=== PATIENT | male | born 1980 | race Caucasian/White ===

== ENCOUNTER 2020-01-27 16:33 | Emergency (ER) | payer OTHER, SELFPAY ==
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
== END 2020-01-27 17:15 | disposition home or self-care (01) ==
LOC: EEVIPCON 16:33 → ERS 16:33
DX: S06.0X1A Concussion with loss of consciousness of 30 minutes or less, initial encounter (principal); F17.210 Nicotine dependence, cigarettes, uncomplicated; W22.8XXA Striking against or struck by other objects, initial encounter
CPT/HCPCS: 70450

== ENCOUNTER 2021-01-19 09:17 | Outpatient (CLI) | payer SELFPAY ==
[2021-01-19 19:55] LABS: SARS-CoV-2 PCR by NAA Not Detected (NotDetected)
== END 2021-01-19 09:18 | disposition home or self-care (01) ==
LOC: LABBT 09:17
PROVIDERS: ATTEND Orthopaedic Surgery
DX: Z01.812 Encounter for preprocedural laboratory examination (principal); S62.303A Unspecified fracture of third metacarpal bone, left hand, initial encounter for closed fracture; S62.307A Unspecified fracture of fifth metacarpal bone, left hand, initial encounter for closed fracture; Z20.822 Contact with and (suspected) exposure to COVID-19
CPT/HCPCS: U0003; U0005

== ENCOUNTER 2021-01-20 09:43 | Day surgery (SDC) | payer OTHER ==
[2021-01-19 11:49] VITALS: BMI 22.8
[2021-01-20] MEDS ORDERED: ceFAZolin Sodium (SDC) 2 GM/100 ML BAG ONE (10:00)
[2021-01-20] MEDS ORDERED: Fentanyl 100 MCG/2 ML VIAL ONE ×2 (12:14→14:27)
[2021-01-20] MEDS ORDERED: Midazolam HCl 2 mg/2 ml Vial ONE (12:14)
[2021-01-20] MEDS ORDERED: Lidocaine 1% PF 5 ML VIAL ONE (13:05)
[2021-01-20] MEDS ORDERED: Glycopyrrolate 0.2 MG/ML 5 ML SYRINGE ONE (13:05)
[2021-01-20] MEDS ORDERED: Ondansetron PF 4 MG/2 ML Vial ONE (13:05)
[2021-01-20] MEDS ORDERED: PROPOFOL 200 MG/20 ML VIAL ONE (13:05)
[2021-01-20] MEDS ORDERED: ePHEDrine 50 MG/ML VIAL ONE (13:05)
[2021-01-20] MEDS ORDERED: PHENYLEPHRINE-NS 100 MCG/ML 10 ML SYRINGE ONE (13:05)
[2021-01-20] MEDS ORDERED: Bupivacaine PF 0.5% 30 ML VIAL ONE (13:47)
[2021-01-20] MEDS ORDERED: EPINEPHrine 1 MG/ML AMP ONE (13:47)
[2021-01-20] MEDS ORDERED: Phenylephrine 10 MG/ML VIAL ONE (13:50)
[2021-01-20] MEDS ORDERED: HYDROcodone/Acetaminophen 5/325 mg Tablet ONE (15:25)
== END 2021-01-20 16:05 ==
LOC: SDC 09:43
PROVIDERS: ATTEND Orthopaedic Surgery
DX: S62.325A Displaced fracture of shaft of fourth metacarpal bone, left hand, initial encounter for closed fracture (principal); S62.327A Displaced fracture of shaft of fifth metacarpal bone, left hand, initial encounter for closed fracture; Z87.891 Personal history of nicotine dependence; Z91.012 Allergy to eggs; W19.XXXA Unspecified fall, initial encounter; Y93.73 Activity, racquet and hand sports
CPT/HCPCS: 76000; J0171; J0690; J2250; J2370; J3010; S0020